=== PATIENT | male | born 1935 | race Hispanic/Latino ===

== ENCOUNTER 2017-12-01 06:28 | Day surgery (SDC) | payer MEDICARE ==
[2017-12-01] MEDS ORDERED: NACL 0.9% 1000 ML 1,000 ML IV SCH (08:00)
--- NOTE | 2017-12-01 08:01 | Anesthesia Day of Surgery ---
Anesthesia Day of Surgery - Day of Surgery Patient Examined: Yes Patient H&P Reviewed: Yes Patient is NPO: Yes Cardiac Clearance: Yes
--- NOTE | 2017-12-01 08:01 | Anesthesia Consultation ---
Anesthesia Consult and Med Hx Date of service: 12/01/17 - Airway Anesthetic Teeth Evaluation: Dentures ROM Head & Neck: Adequate Mental/Hyoid Distance: Adequate Mallampati Class: Class I Intubation Access Assessment: Good - Pulmonary Exam CTA: Yes - Cardiac Exam Cardiac Exam: RRR - Pre-Operative Health Status ASA Pre-Surgery Classification: ASA3 Proposed Anesthetic Plan: MAC - Pulmonary Hx Smoking: Yes - Cardiovascular System Hx Hypertension: Yes Hx Coronary Artery Disease: Yes (s/p cabg 2007 ) Hx Angina: No - Central Nervous System Hx Back Pain: Yes
[2017-12-01] MEDS ORDERED: DIPRIVAN 10 MG/ML IV ONE ×2 (08:05→08:45)
[2017-12-01] MEDS ORDERED: WATER FOR IRRIG STERILE IR ONE (08:08)
--- NOTE | 2017-12-01 08:53 | Short Stay Summary ---
Short Stay Documentation - Allergies and Medications Current Medications: Allergies No Known Allergies Allergy (Verified 11/30/17 12:21) Home Medications Medication Instructions Recorded Confirmed Last Taken Type ALPRAZolam [Xanax TAB] 0.25 mg PO BID 11/30/17 11/30/17 11/30/17 History Adult Low Dose Aspirin EC 162 mg PO DAILY 11/30/17 12/01/17 11/27/17 History Ferrous Sulfate 325 mg PO DAILY 11/30/17 12/01/17 11/30/17 History Lisinopril 10 mg PO DAILY 11/30/17 12/01/17 11/30/17 History Metoprolol Tartrate 25 mg PO TID 11/30/17 12/01/17 11/30/17 History Multivitamin 1 tab PO DAILY 11/30/17 11/30/17 Unknown History Nitroglycerin 0.4 mg SUBLINGUAL PRN PRN 11/30/17 11/30/17 Unknown History Simvastatin 40 mg PO HS 11/30/17 12/01/17 11/30/17 History Active Medications Sodium Chloride (Nacl 0.9% 1000 Ml) 1,000 mls @ 50 mls/hr IV DIRECT SU Last Admin: 12/01/17 08:03 Dose: 50 mls/hr - Brief post op/procedure progress note Date of procedure: 12/01/17 Pre-op diagnosis: 1. Heme positive stool 2. Colon cancer screening Post-op diagnosis: same (EGD: 1. GERD 3. Gastritis Colonoscopy 1. Poor prep 2. Polypoid mass 3. Multiple polyps 4. Internal hemorrhoids 5. Diverticulosis) Short Stay Discharge Plan Follow up with: PRIMARY CARE, [Primary Care Provider] - 7 Days
[2017-12-01 09:06] VITALS: BP 137/54
[2017-12-01] MEDS ORDERED: XYLOCAINE CARDIAC IV ONE (11:19)
[2017-12-01] MEDS ORDERED: XYLOCAINE TOPICAL 2% 5ML ONE (11:19)
== END 2017-12-01 06:29 | disposition home or self-care (01) ==
LOC: GIO 06:28
PROVIDERS: ATTEND Internal Medicine Gastroenterology
DX: D12.8 Benign neoplasm of rectum (principal); D37.5 Neoplasm of uncertain behavior of rectum; K64.8 Other hemorrhoids; K57.30 Diverticulosis of large intestine without perforation or abscess without bleeding; K21.9 Gastro-esophageal reflux disease without esophagitis; K29.60 Other gastritis without bleeding; K29.70 Gastritis, unspecified, without bleeding; I25.10 Atherosclerotic heart disease of native coronary artery without angina pectoris; E78.5 Hyperlipidemia, unspecified; N40.0 Benign prostatic hyperplasia without lower urinary tract symptoms; F17.210 Nicotine dependence, cigarettes, uncomplicated; Z79.899 Other long term (current) drug therapy; Z95.1 Presence of aortocoronary bypass graft; Z87.11 Personal history of peptic ulcer disease; Z98.890 Other specified postprocedural states
CPT/HCPCS: 43239; 45380; 88305; 88342; J2001; J2704; J7030

== ENCOUNTER 2018-05-25 06:01 | Day surgery (SDC) | payer MEDICARE ==
[2018-05-25] MEDS ORDERED: WATER FOR IRRIG STERILE IR ONE (07:29)
[2018-05-25] MEDS ORDERED: WATER FOR IRRIG STERILE ONE (07:29)
[2018-05-25] MEDS ORDERED: DIPRIVAN 10 MG/ML IV ONE (07:30)
[2018-05-25] MEDS ORDERED: XYLOCAINE 2% INFILTRATI ONE (07:31)
--- NOTE | 2018-05-25 07:39 | Anesthesia Consultation ---
Anesthesia Consult and Med Hx Date of service: 05/25/18 - Airway Anesthetic Teeth Evaluation: Dentures ROM Head & Neck: Adequate Mental/Hyoid Distance: Adequate Mallampati Class: Class I Intubation Access Assessment: Probably Good - Pulmonary Exam CTA: Yes - Cardiac Exam Cardiac Exam: No Murmur - Pre-Operative Health Status ASA Pre-Surgery Classification: ASA3 Proposed Anesthetic Plan: MAC - Pulmonary Hx Smoking: Yes - Cardiovascular System Hx Hypertension: Yes Hx Coronary Artery Disease: Yes (s/p cabg 2007 ) Hx Angina: No - Central Nervous System Hx Back Pain: Yes
--- NOTE | 2018-05-25 07:39 | Anesthesia Day of Surgery ---
Anesthesia Day of Surgery - Day of Surgery Patient Examined: Yes Patient H&P Reviewed: Yes Patient is NPO: Yes Beta Blockers: Yes
[2018-05-25] MEDS ORDERED: NACL 0.9% 1000 ML 1,000 ML IV SCH (08:00)
--- NOTE | 2018-05-25 09:00 | Short Stay Summary ---
Short Stay Documentation - Allergies and Medications Current Medications: Allergies No Known Allergies Allergy (Verified 11/30/17 12:21) Home Medications Medication Instructions Recorded Confirmed Last Taken Type ALPRAZolam [Xanax TAB] 0.25 mg PO BID 11/30/17 05/25/18 11/30/17 History Adult Low Dose Aspirin EC 162 mg PO DAILY 11/30/17 05/25/18 05/19/18 History Ferrous Sulfate 325 mg PO DAILY 11/30/17 05/25/18 11/30/17 History Lisinopril 10 mg PO DAILY 11/30/17 05/25/18 05/24/18 History Metoprolol Tartrate 25 mg PO TID 11/30/17 05/25/18 05/24/18 History Multivitamin 1 tab PO DAILY 11/30/17 05/25/18 05/24/18 History Nitroglycerin 0.4 mg SUBLINGUAL PRN PRN 11/30/17 05/25/18 Unknown History Simvastatin 40 mg PO HS 11/30/17 05/25/18 05/24/18 History Active Medications Sodium Chloride (Nacl 0.9% 1000 Ml) 1,000 mls @ 50 mls/hr IV DIRECT SU Last Admin: 05/25/18 07:44 Dose: 50 mls/hr Documented by: - Brief post op/procedure progress note Date of procedure: 05/25/18 Pre-op diagnosis: History of colon polyps Post-op diagnosis: same (1. Colon polyps 2. Diverticulosis) Procedure: Colonoscopy with snare polypectomy, cold biopsy polypectomy and placement of Endoclips Anesthesia: MAC Findings: as above Surgeon: LINDA LAGUNA Estimated blood loss: none Pathology: list (1. Cecal polyp 2. Transverse colon polyp 3. Sigmoid polyp 4. Rectal polyp) Specimen disposition: to lab Condition: stable - Disposition Condition at discharge: Stable Disposition: [id number] TO HOME OR SELFCARE Short Stay Discharge Plan Activity: no restrictions Weight Bearing Status: Full Weight Bearing Diet: regular, low salt Additional Instructions: Post Sedation D/C Instructions When you return home you may resume your regular diet unless otherwise directed. -Go directly home from the hospital and rest quietly. You may resume normal activities tomorrow. -Do NOT drive, return to work, operate any machinery or make any important personal or business decisions today. -Do NOT drink any alcohol or take nerve or sleeping drugs. They add to the effects of the medicine still present in your body. daily fiber with plenty of fluids daily no aspirin or nsaids next 3-4 days Follow up with: PRIMARY CARE, [Primary Care Provider] - 7 Days
[2018-05-25 09:15] VITALS: BP 129/72
== END 2018-05-25 06:02 | disposition home or self-care (01) ==
LOC: GIO 06:01
PROVIDERS: ATTEND Internal Medicine Gastroenterology
DX: Z12.11 Encounter for screening for malignant neoplasm of colon (principal); D12.3 Benign neoplasm of transverse colon; D12.0 Benign neoplasm of cecum; K63.5 Polyp of colon; K62.1 Rectal polyp; K57.30 Diverticulosis of large intestine without perforation or abscess without bleeding; I25.10 Atherosclerotic heart disease of native coronary artery without angina pectoris; E78.00 Pure hypercholesterolemia, unspecified; I10 Essential (primary) hypertension; Z87.440 Personal history of urinary (tract) infections; Z98.890 Other specified postprocedural states; Z79.899 Other long term (current) drug therapy; Z95.1 Presence of aortocoronary bypass graft; Z87.891 Personal history of nicotine dependence
CPT/HCPCS: 45380; 45385; 88305; J2704; J7030